=== PATIENT | male | born 1975 | race Caucasian/White ===

== ENCOUNTER 2023-10-23 19:59 | Emergency (ER) | payer MEDICAID, OTHER ==
[~2023-10-23] VITALS: Ht 177.8 cm; Wt 126.6 kg
[2023-10-23 20:59] VITALS: BP 100/48; PULSE 82; RESP 16; O2SAT 98
[2023-10-23 21:12] VITALS: TEMP 101
[2023-10-23] MEDS: ACETAMINOPHEN 500 MG TAB PO ONE (21:12)
== END 2023-10-23 21:57 | disposition left against medical advice (07) ==
LOC: ER 19:59
DX: M54.89 Other dorsalgia (principal); R50.9 Fever, unspecified; Z53.21 Procedure and treatment not carried out due to patient leaving prior to being seen by health care provider